=== PATIENT | female | born 1945 | race Caucasian/White ===

== ENCOUNTER 2019-03-25 02:48 | Inpatient (IN) | payer OTHER, MEDICARE ==
[~2019-03-25] VITALS: Ht 160 cm; Wt 104.3 kg
[~2019-03-25 02:48] MED LIST: ADV250/50 INH; BACTROBAN2% TP; BRETHINE5 MG PO; CIPRO HC10 ML OU; CLINDAMYCIN HC300 MG PO; FLUTICASON0.05 MG/Ac; HIBICLENS TP; INVOKANA100 MG PO; KLOR-CON 1010 MEQ PO; LAC PO; LASIX20 MG PO; LASIX40 MG PO; LEVAQUIN750 MG PO; MEDDP PO; MONTELUKAST SOD10 M1 PO; NASONEX0.05 MG/Ac; NOVOLOG FLEX100 U/M1 SC; OMEPRAZOLE40 M1 PO; PROVENTIL0.09 MG/A1 IH; SPIRIVA18 MC1 INH; ZESTRIL20 MG PO; [UNRECOGNIZED DRUG - OTHER] SQ
[2019-03-25 02:56] VITALS: Ht 160 cm; Wt 104.3 kg
--- NOTE | 2019-03-25 03:20 | NUR ---
PATIENT WAS BROUGHT IN BY EMS WITH COMPLAINT OS SOB X 1 WEEK. BREATHING DIFFICULTY GOT WORSE TODAY. PATIET REPORTS SHE HAS BEEN USING HER INHALER ALL DAY. SEEN WITH DYSPNEA AT REST, TALKING FULL SENTENCE BETWEEN CATCHING HER BREATH. PATIENT WAS GIVEN BREATHING IN THE FIELD. MD AT THE BEDSIDE. PATIENT REPORTS COPD/ASTHMA, AND US 2 LITER OXYGEN AT HOME. SATURATION 94% ON 2 LITER , SAME INCREASE TO 3LITER SATURATION UP TO 96%.
--- NOTE | 2019-03-25 03:36 | NUR ---
PATIENT MEDICATED WITH SOLUMEDROL IVP. RESPIRATORY AT THE BEDSIDE TO GIVE BREATHING TX.
[2019-03-25 04:10] LABS: BASOPHIL % 0.3 % (0-2); PLATELET COUNT 315 x10^3mcL (130-400)
[2019-03-25 04:12] LABS: RED CELL DISTRIBUTION WIDTH 15.1 % (11.5-14.5)
[2019-03-25 04:39] LABS: CALCIUM 9.2 mg/dL (8.5-10.1); CARBON DIOXIDE 33.7 mmol/L (21-32); CHLORIDE SERUM 94 mmol/L (98-107); CREATININE SERUM 1.6 mg/dL (0.6-1.0); GLUCOSE SERUM 290 mg/dL (74-106); POTASSIUM SERUM 3.4 mmol/L (3.5-5.1); SODIUM SERUM 136 mmol/L (136-145)
[2019-03-25 04:43] LABS: ALBUMIN 3.4 g/dL (3.4-5.0); ALKALINE PHOSPHATASE 95 U/L (46-116); ALT/SGPT 22 U/L (14-59); AST/SGOT 15 U/L (15-37); BILIRUBIN TOTAL 0.29 mg/dL (0.20-1.00); TOTAL PROTEIN, SERUM 8.2 g/dL (6.4-8.2)
--- NOTE | 2019-03-25 05:24 | NUR ---
PATIENT IS ADMITTED TO THE HOSPITAL. ANTIBIOTIC AND FLUID BOLUS STARTED.
--- NOTE | 2019-03-25 05:35 | NUR ---
PATIENT IS SLEEPING AT THIS TIME. REPORT WAS GIVEN TO MARY. PATIENT WILL BE TRANSPORTED TO ROOM 218A.
[2019-03-25 06:14] VITALS: BP 166/70
[2019-03-25 06:14] LABS: CHOLESTEROL/HDL RATIO 3.8; MAGNESIUM 1.4 mg/dL (1.8-2.4); PHOSPHOROUS 4.3 mg/dL (2.5-4.9)
[2019-03-25 06:23] LABS: FREE T4 1.24 ng/dL (0.76-1.46); FREE THYROXINE INDEX 3.2 ug/dL (1.4-4.5); T3 TOTAL 0.94 ng/mL; T4(THYROXINE) 8.9 ug/dL (4.7-13.3)
--- NOTE | 2019-03-25 06:42 | NUR ---
ADMITTED A 73 YEAR OLD PATIENT TO THE FLOOR,PT CAME TO THE FLOOR VIA [facility] AND WAS ACCOMPANIED BY THE HOSPITAL PERSONNEL AND THE NURSE,PT WAS RECIEVED TO THE BED WAS MADE COMFORTABLE IN BED TELE MONITOR WAS ELIZ ON THE PATIENT AND IN NSR NO ECTOPY OR CHEST PAIN AT THIS TIME.ON INITAIL ASSESSMENT PATIENT IS AAO REG RESP WITH CARCKLES RHOCHI AND AUDIBLE WHEEZING TO CARROLL LOWER BAESES PT WAS PUT ON 2L N/C SAT 94%,ABDO IS SOFT OBNESE WITH ACTIVE BOWEL SOUNDS,PT ALSO CAME TO THE FLOOR WITH IV INFUSING TO THE LT AC SITE PATENT AND INTACT,PT WAS ORIENTED TO THE CALL LIGHT BED CONTROL TELE MONITOR AND CALL LIGHT PATIENT VERBALOIZED UNDERSTANDING,BED IN THE LOW POSITION AND LOCKED AND WILL CONTINUE TO MONITOR.
--- NOTE | 2019-03-25 06:47 | NUR ---
PT RESTING AT THIS TIME AND WILL CONTINUE TO MONITOR.
--- NOTE | 2019-03-25 07:20 | NUR ---
RECEIVED PT FROM REAL ESTATE AGENT/BROKER RN. Shantanu/TONYA. TELE#6. DENIES CHEST PAIN/PRESSURE. PT TRYING TO GET OUT UP BED. PT STATES SHE IS SOB AND HAVING DIFFICULTY BREATHING. RESPIRATIONS LABORED ON 2L NC. INCREASED NC TO 23L. PT SITTING UP IN CHAIR LEANING FORWARD ON BEDSIDE TABLE. O2 SAT 93%. PT DENIES ANY PAIN AT THIS TIME. IV TO LAC PATENT AND INFUSING. NO REDNESS OR SWELLING NOTED. WILL CONTINUE TO MONITOR. CALL LIGHT IN REACH. BED IN LOWEST POSITION.
--- NOTE | 2019-03-25 07:30 | NUR ---
PT SITTING UP IN CHAIR AT BEDSIDE. IV TO LAC WAS REMOVED. CATHETER INTACT. NO REDNESS OR SWELLING NOTED.
--- NOTE | 2019-03-25 08:43 | NUR ---
RESPIRATORY THERAPIST AT BEDSIDE. PT WOULD LIKE TO HAVE BREATHING TREATMENTS SCHEDULED Q4HRS.
[2019-03-25 09:02] VITALS: BP 117/47
--- NOTE | 2019-03-25 09:55 | NUR ---
PT SITTING UP IN CHAIR AT BEDSIDE. NO ACUTE RESP DISTRESS NOTED ON 3L NC. PT DENIES ANY PAIN AT THIS TIME. GIVEN PO MEDS. TOLERATED WELL. PT ASKING IF SHE CAN HAVE BREATHING TREATMENTS SCHEDULED Q4HR. PER DR. GONZALEZ WILL PUT IN TERRENCE ORDER. WILL CONTINUE TO MONITOR. CALL LIGHT IN REACH. BED IN LOWEST POSITION.
--- NOTE | 2019-03-25 11:24 | NUR ---
PT IN BED RESTING. NO ACUTE RESP DISTRESS NOTED ON 3L NC. BLOOD SUGAR CHECKED WAS 494. RECHECKED BLOOD SUGAR WAS 479. PAGED DR. GONZALEZ PER INSULING SLIDING SCALE PROTOCOL.
--- NOTE | 2019-03-25 11:39 | NUR ---
PT SITTING UP IN BED. GIVEN 21 UNITS OF REGULAR INSULIN PER INSULIN SLIDING SCALE. SPOKE WITH DR. GONZALEZ MADE AWARE. WILL RECHECK BLOOD SUGAR.
--- NOTE | 2019-03-25 12:19 | NUR ---
PT SITTING UP IN BED. NO ACUTE RESP DISTRESS NOTED ON 3L NC. BLOOD SUGAR RECHECKED WAS 440. GIVEN PO MEDS. TOLERATED WELL. IV SALINE LOCKED TO [facility]. FLUSHED WELL. NO REDNESS OR SWELLING NOTED. WILL CONTINUE TO MONITOR. CALL LIGHT IN REACH. BED IN LOWEST POSITION.
[2019-03-25 14:00] VITALS: BP 120/48
--- NOTE | 2019-03-25 16:24 | NUR ---
PT SITTING UP AT BEDSIDE. RESPIRATIONS EQUAL AND UNLABORED ON 3L NC. NO ACUTE RESP DISTRESS NOTED. BLOOD SUGAR CHECKED WAS 455. RECHECKED BLOOD SUGAR WAS 414. GIVEN 18 UNITS OF REGULAR INSULIN PER SLIDING SCALE. WILL CONTINUE TO MONITOR. CALL LIGHT IN REACH. BED IN LOWEST POSITION.
[2019-03-25 17:28] LABS: microscopic required? NO
[2019-03-25 17:35] LABS: urine erythrocyte NEGATIVE (NEGATIVE)
[2019-03-25 17:51] VITALS: BP 140/53
--- NOTE | 2019-03-25 18:50 | NUR ---
PT SITTING UP IN BED. NO ACUTE RESP DISTRESS NOTED ON 3L NC. PT DENIES ANY SOB AT THIS TIME. IV SALINE LOCKED TO LFA. NO REDNESS OR SWELLING NOTED. PT DENIES ANY PAIN AT THIS TIME. WILL ENDORSE TO TELEGRAPH AND TELETYPE OPERATOR RN. CALL LIGHT IN REACH. BED IN LOWEST POSITION.
--- NOTE | 2019-03-25 19:05 | NUR ---
RECEIVED PT FROM PREVIOUS SHIFT NURSE. PT AOX4. TELE #6, HR 82, DENIES CP/PRESSURE. NO SOB/DIFFICULTY BREATHING, ON 3L NC. IV TO LFA, INTACT AND PATENT. BED IN LOWEST POSITION. CALL LIGHT WITHIN REACH. WILL CONTINUE TO MONITOR.
[2019-03-25 21:06] VITALS: BP 133/56
--- NOTE | 2019-03-25 21:54 | NUR ---
BLOOD SUGAR 518, 482 UPON RECHECK. GIVEN 21U HUMULIN R PER PROTOCOL. DR. GLEASON MADE AWARE.
--- NOTE | 2019-03-25 23:57 | NUR ---
PT NOT READY TO GO ON BIPAP YET. PT ADVISED TO CALL WHEN READY.
--- NOTE | 2019-03-26 | NUR ---
PER PT. SHE WOULD LIKE TO SLEEP WITHOUT BIPAP FOR TONIGHT.
--- NOTE | 2019-03-26 01:41 | NUR ---
PT RESTING IN BED. RR EVEN AND UNLABORED. NO ACUTE DISTRESS NOTED. CALL LIGHT WITHIN REACH. BED IN LOWEST POSITION. WILL CONTINUE TO MONITOR.
--- NOTE | 2019-03-26 04:28 | NUR ---
PATIENT AWAKE ON BEDSIDE COMMODE. DUONEB TX GIVEN, THEN PLACED PT ON BIPAP. BIPAP ALARMS SET AND VERIFIED. WHEELS LOCKED, PLUGGED INTO RED OUTLET. PATIENT INITIALLY SEEMS TO BE TOLERATING BIPAP WELL. CALL LIGHT WITHIN REACH. PT ADVISED TO CALL IF ASSISTANCE IS NEEDED.
--- NOTE | 2019-03-26 05:51 | NUR ---
PATIENT ASLEEP IN HIGH FOWLERS POSITION, BIPAP ON, PT IN NAD. B/S DIMINISHED BILATERALLY. PT WAS ADVISED TO CALL WHEN SHE IS READY TO COME OFF TO EAT BREAKFAST.
[2019-03-26 06:09] VITALS: BP 120/51
[2019-03-26 06:25] LABS: BASOPHIL % 0.1 % (0-2); PLATELET COUNT 297 x10^3mcL (130-400); RED CELL DISTRIBUTION WIDTH 14.4 % (11.5-14.5)
[2019-03-26 06:32] LABS: CALCIUM 9.3 mg/dL (8.5-10.1); CARBON DIOXIDE 31.4 mmol/L (21-32); CHLORIDE SERUM 93 mmol/L (98-107); CREATININE SERUM 1.6 mg/dL (0.6-1.0); GLUCOSE SERUM 393 mg/dL (74-106); MAGNESIUM 1.8 mg/dL (1.8-2.4); PHOSPHOROUS 4.3 mg/dL (2.5-4.9); POTASSIUM SERUM 4.1 mmol/L (3.5-5.1); SODIUM SERUM 132 mmol/L (136-145)
[2019-03-26 07:01] VITALS: BP 110/43
--- NOTE | 2019-03-26 07:30 | NUR ---
RECEIVED PT FROM TAFE REGISTRAR RN. Shantanu/TONYA. TELE#6. DENIES CHEST PAIN/PRESSURE. RESPIRATIONS EQUAL AND UNLABORED ON BIPAP WITH FIO2 OF 40. INSTRUCTED PT TO CALL WHEN WANTING TO GET OFF BIPAP. NO ACUTE RESP DISTRESS NOTED. IV SALINE LOCKED TO LFA. NO REDNESS OR SWELLING NOTED. WILL CONTINUE TO MONITOR. CALL LIGHT IN REACH. BED IN LOWEST POSITION.
--- NOTE | 2019-03-26 09:43 | NUR ---
TAKEN OFF OF BIPAP AND PLACED ON 2L NC. SPO2:97%. NO RESP DISTRESS NOTED. WILL CONT. TO MONITOR
[2019-03-26 11:58] VITALS: BP 119/52
--- NOTE | 2019-03-26 12:22 | NUR ---
PT SITTING UP IN BEDSIDE COMMODE. NO ACUTE RESP DISTRESS NOTED ON 3L NC. PT DENIES ANY SOB AT THIS TIME. GIVEN PO MEDS. TOLERATED WELL. BLOOD SUGAR CHECKED WAS 436. GIVEN 18 UNITS OF REGULAR INSULIN PER SLIDING SCALE. PT STATES SHE BELIEVES SHE MAY HAVE BEEN ON METFORMIN AND GLIPIZIDE. PT STATES SHE WILL HAVE SON BRING IN HOME MEDS. WILL CONTINUE TO MONITOR. CALL LIGHT IN REACH. BED IN LOWEST POSITION.
--- NOTE | 2019-03-26 16:24 | NUR ---
PT SITTING UP AT BEDSIDE. NO ACUTE RESP DISTRESS N0TED ON 3L NC. BLOOD SUGAR CHECKED WAS 442. GIVEN 18 UNITS OF REGULAR INSULIN PER SLIDING SCALE. WILL CONTINUE TO MONITOR. CALL LIGHT IN REACH. BED IN LOWEST POSITION.
[2019-03-26 17:26] VITALS: BP 130/57
--- NOTE | 2019-03-26 18:25 | NUR ---
PT MOVED FROM BEDSIDE COMMODE TO BED. PT C/O FEELING SOB. CALLED RESPIRATORY THERAPY WILL COME AND GIVE PT BREATHING TREATMENT.
--- NOTE | 2019-03-26 18:54 | NUR ---
PT SITTING UP AT BEDSIDE. NO ACUTE RESP DISTRESS NOTED ON 3L NC. TELE#6. IV SALINE LOCKED TO LFA. NO REDNESS OR SWELLING NOTED. WILL ENDORSE TO HEALTH AND SOCIAL CARE TEACHER RN. CALL LIGHT IN REACH. BED IN LOWEST POSITION.
--- NOTE | 2019-03-26 19:42 | NUR ---
RECEIVED PT FROM PREVIOUS SHIFT. PT A/OX4. DENIES PAIN. DENIES SOB ON 3LNC, STATES SOB UPON EXERTION. PT SITTING UP IN BED IN NO ACUTE DISTRESS. IV TO LFA PATENT, SALINE LOCKED. CALL LIGHT WITHIN REACH, BED IN LOW POSITION. WILL CONTINUE TO MONITOR.
[2019-03-26 20:56] VITALS: BP 121/61
--- NOTE | 2019-03-27 00:50 | NUR ---
PT SITTING UP AT BEDSIDE IN NO ACUTE DISTRESS. C/O ITCHING UNDERNEATH R BREAST. UPON ASSESSMENT, NOTED ERYTHEMA AND SWEATING. INTERDRY APPLIED. PT DENIES PAIN. CALL LIGHT WITHIN REACH, BED IN LOW POSITION. WILL CONTINUE TO MONITOR.
[2019-03-27 05:57] VITALS: BP 116/53
[2019-03-27 06:26] LABS: PLATELET COUNT 318 x10^3mcL (130-400); RED CELL DISTRIBUTION WIDTH 14.5 % (11.5-14.5)
[2019-03-27 06:50] LABS: BASOPHIL % 0 % (0-2)
[2019-03-27 07:04] LABS: CALCIUM 9.4 mg/dL (8.5-10.1); CARBON DIOXIDE 30.9 mmol/L (21-32); CHLORIDE SERUM 93 mmol/L (98-107); CREATININE SERUM 1.5 mg/dL (0.6-1.0); GLUCOSE SERUM 374 mg/dL (74-106); MAGNESIUM 1.9 mg/dL (1.8-2.4); PHOSPHOROUS 4.5 mg/dL (2.5-4.9); POTASSIUM SERUM 3.6 mmol/L (3.5-5.1); SODIUM SERUM 135 mmol/L (136-145)
--- NOTE | 2019-03-27 07:32 | NUR ---
RECEIVED PT IN BED. ASSESSED AND DOCUMENTED. DENIES PAIN THIS TIME. NO SOB NOTED. SAFTEY PRECAUTIONS ARE IN PLACE. WILL MONITOR.
[2019-03-27 09:38] VITALS: BP 142/59
[2019-03-27 13:45] VITALS: BP 138/62
--- NOTE | 2019-03-27 14:00 | NUR ---
PT RESTING IN BED COMFORTABLY, STABLE. NO SOB NOTED. DENIES ANY PAIN. GAVE REPORT TO ANNEALER HELPER NURSE.
--- NOTE | 2019-03-27 14:00 | NUR ---
PT SITTING UP IN THE CHAIR, STABLE. NO SOB NOTED.
--- NOTE | 2019-03-27 17:04 | NUR ---
PHYSICAL THERAPY DAILY NOTES CO-SIGN All documentation done by the Commodity Director for 03/27/19 has been reviewed. I agree with the documentation. Reviewed/Co-Signed by: Tram Mcmahon PT Documentation Done by:RICHELLE NICOLE PTA
[2019-03-27 17:53] VITALS: BP 120/59
--- NOTE | 2019-03-27 19:02 | NUR ---
PT RESTTING BED COMORTABLY, DENIES PAIN. NO SOB NOTED. GAVE REPORT TO PELLET PRESS OPERATOR NURSE.
--- NOTE | 2019-03-27 19:40 | NUR ---
RECEIVED SITTING AT BEDSIDE WITH NO SIGN OF ACUTE RESPIRATORY DIISTRESS. BREATHING EASY AND NONLABOR SATTING AT 98% ON O2 AT 3L VIA NC. BREATHING EASY AND NONLABOR. TELE#6 NSR ON MONITOR. ABDOMEN ROUND AND NONTENDER WITH ACTIVE BS. IV TO LFA HEPLOCK AND INTACT. WILL CONTINUE TO MONITOR. CALL LIGHT WITHIN REACH.
[2019-03-27 21:59] VITALS: BP 138/69
--- NOTE | 2019-03-27 23:56 | NUR ---
APPEARS SLEEPING THIS TIME WITH EYES CLOSED. BREATHING EASY AND NONLABOR. WILL CONTINUE TO MONITOR.
--- NOTE | 2019-03-28 05:23 | NUR ---
SLEPT AT LONG INTERVALS ON BIPAP. ALL NEEDS ATTENDED. DENIES PAIN AND DISCOMFORT.
[2019-03-28 06:21] VITALS: BP 147/62
[2019-03-28 06:46] LABS: CALCIUM 9.5 mg/dL (8.5-10.1); CARBON DIOXIDE 34.5 mmol/L (21-32); CHLORIDE SERUM 92 mmol/L (98-107); CREATININE SERUM 1.7 mg/dL (0.6-1.0); GLUCOSE SERUM 355 mg/dL (74-106); MAGNESIUM 2.1 mg/dL (1.8-2.4); PHOSPHOROUS 4.9 mg/dL (2.5-4.9); POTASSIUM SERUM 3.7 mmol/L (3.5-5.1); SODIUM SERUM 135 mmol/L (136-145)
[2019-03-28 07:14] LABS: BASOPHIL % 0.2 % (0-2); PLATELET COUNT 303 x10^3mcL (130-400); RED CELL DISTRIBUTION WIDTH 14.1 % (11.5-14.5)
--- NOTE | 2019-03-28 07:35 | NUR ---
RECEIVED PT FROM PREPARING BOX TENDER, SITTING AT THE EDGE OF BED. NO SOB NOTED. STABLE. SAFTEY PRECAUTIONS ARE IN PLACE. WILL MONITOR.
[2019-03-28 09:00] VITALS: BP 105/75; BP 136/55
[2019-03-28] MEDS ORDERED: LEVAQUIN750 MG PO (11:22)
[2019-03-28] MEDS ORDERED: HUMULIN N100 U/1 ML SC (11:26)
[2019-03-28] MEDS ORDERED: HUMULIN R100 U/1 M1 SC (11:30)
[2019-03-28] MEDS ORDERED: INVOKANA100 MG PO (11:31)
--- NOTE | 2019-03-28 12:15 | NUR ---
PT IS COUGHING AND ALMOST ABOUT TO CHOKE WITH PHLEM. PT HAS O2 2L N/C ON,SATTING 92% THIS TIME. SLIGHTLY RUBBED PT BACK AND THAT HELP HER GETTING THE PHLEM OUT, AFTER FEW MORE MIN COUGHING, PT FELT BETTER. INFORMED SALON/SPA MANAGER JACLYN ABOUT EVERYTHING AND ALSO INFORMED PT BLOOD SUGAR 400. NO NEW ORDER RECEIVED BUT JACLYN SAID WAIT FOR TO SEE THE PT AND HOLD ON DISCHARGE FOR NOW. CHARGE NURSE AWARE.
--- NOTE | 2019-03-28 13:55 | NUR ---
INFORMED SHEET METAL CONTRACTOR JACLYN ABOUT PT HAS ERYTHEMA TO HER BILATERAL BREASTFOLDS AND INTERDRY ON TO BILATERAL BREAST FOLDS. SHE SAID SHE WILL TAKE CARE OF IT. EDUCATED PT ABOUT PERSONAL HYGIENE.
[2019-03-28 14:31] VITALS: BP 146/63
--- NOTE | 2019-03-28 17:07 | NUR ---
CAME ASSESS THE PT AND SPOKE WITH PT. SHE RECCOMEND PT STAYING IN THE HOSPITAL TODAY BECAUSE OF HIGH BLOOD SUGAR AND MORE RT TX. SPOKE WITH AUTO BODY REPAIRER JACLYN. SHE SAID SHE WILL CANCEL DISCHARGE AND PT CAN STAY.
[2019-03-28 17:39] VITALS: BP 126/60
--- NOTE | 2019-03-28 19:00 | NUR ---
PT RESTING IN BED COMFORTABLY. STABLE. NO SOB NOTED. GAVE REPORT TO WRONG ADDRESS CLERK NURSE.
--- NOTE | 2019-03-28 19:41 | NUR ---
RECEIVED PATIENT SITTING AT BEDSIDE WITH NO SIGN OF ACUTE RESPIRATORY DISTRESS. BREATHINGE ASY AND NONLABOR SATTING AT 96% ON O2 AT 2L VIA NC. TELE#25 NSR ON MONITOR DENIES CHEST DISCOMFORT. IV TO RAC INTACT AND INFUSINGW ELL. WILL CONTINUE TO MONITOR. CALL LIGHT WITHIN REACH.
[2019-03-28 21:05] VITALS: BP 134/61
--- NOTE | 2019-03-29 00:29 | NUR ---
APPEARS SLEEPING THIS TIME, BREATHING EASY AND NONLABOR. WILL CONTINUE TO MONITOR.
--- NOTE | 2019-03-29 02:50 | NUR ---
WITH NEW ORDERS FROM DR PENDLETON, BANANA BAG INFUSING AT 100ML/HR.
--- NOTE | 2019-03-29 03:54 | NUR ---
PATIENT REQUESTED TO GO BIPAP. PATIENT IS AWAKE AND SITTING UP ON SIDE OF BED. CONFIRMED COMFORT WITH MASK.
--- NOTE | 2019-03-29 05:19 | NUR ---
CHECKED AT INTERVALS FOR NEEDS AND SAFETY. ALL NEEDS ATTENDED.
[2019-03-29 05:39] VITALS: BP 136/65
--- NOTE | 2019-03-29 06:32 | NUR ---
PHYSICAL THERAPY DAILY NOTES CO-SIGN All documentation done by the Carpenter'S Assistant for 03/29/19 has been reviewed. I agree with the documentation. Reviewed/Co-Signed by: Tram Mcmahon PT Documentation Done by:RICHELLE NICOLE PTA FOR 03/28/19
[2019-03-29 08:40] LABS: CALCIUM 9.6 mg/dL (8.5-10.1); CHLORIDE SERUM 99 mmol/L (98-107); CREATININE SERUM 1.4 mg/dL (0.6-1.0); GLUCOSE SERUM 135 mg/dL (74-106); POTASSIUM SERUM 3.6 mmol/L (3.5-5.1); SODIUM SERUM 140 mmol/L (136-145)
--- NOTE | 2019-03-29 08:47 | NUR ---
REPORT RECEIVED. PATIENT ASLEEP ON INITIAL ROUNDS AT 0750 WITH BIPAP IN USE. CALL MCGREGOR WITHIN REACH.BED LOW AND LOCKED.
[2019-03-29 08:58] LABS: CARBON DIOXIDE 40.7 mmol/L (21-32)
[2019-03-29 09:01] LABS: BASOPHIL % 0.2 % (0-2); PLATELET COUNT 317 x10^3mcL (130-400); RED CELL DISTRIBUTION WIDTH 14.3 % (11.5-14.5)
[2019-03-29 09:55] VITALS: BP 123/70
--- NOTE | 2019-03-29 10:23 | NUR ---
TASH ANAYA HERE AND RELAYED CRITICAL VALUE ON CO2 40.7. NO NEW ORDERS SO FAR.
--- NOTE | 2019-03-29 11:31 | NUR ---
P.T. NOTES AFTER MULTIPLE ATTEMPTS PATIENT REFUSED TO BE SEEN BY P.T., STATES NOT FEELING WELL AND SOB, PATIENT STATES NURSE IS AWARE AND WILL CALL FOR RT.
--- NOTE | 2019-03-29 12:32 | NUR ---
SEEN AND EXAMINED BY DR. JORDAN. TO COLLECT SPUTUM FOR GRAM STAIN AND CULTURE.
[2019-03-29 13:45] VITALS: BP 140/61
--- NOTE | 2019-03-29 14:13 | NUR ---
WATCHING TV AT THIS TIME. ENCOURAGED TO USE INCENTIVE SPIROMETRY. CUP PROVIDED FOR SPUTUM COLLECTION.
--- NOTE | 2019-03-29 19:06 | NUR ---
REPORT GIVEN TO TIMMY LOMELI. PATIENT IN BED WATCHING TV. A/OX3. DENIES ANY SOB. BED LOW AND LOCKED. CALL MCGREGOR WITHIN REACH.
--- NOTE | 2019-03-29 19:30 | NUR ---
RECEIVED PT FROM DAY SHIFT RN. PT AAOX4 DENIES HEADACHE OR DIZZINESS. TELE 6 NSR HR 76, PT DENIES CHEST PAIN. BREATHING EVEN AND UNLABORED WITH WHEEZING UPON AUSCULTATION, 3L/MIN NC. RT PROTOCOL. IV LFA PATENT, SL. BLE EDEMA NOTED. NO SIGNS OF ACUTE DISTRESS NOTED. CALL BUTTON WITHIN REACH. WILL CONTINUE TO MONITOR.
[2019-03-29 20:52] VITALS: BP 126/67
--- NOTE | 2019-03-29 21:00 | NUR ---
DR FELIX MADE AWARE OF SPUTUM CULTURE RESULT BEING POOR QUALITY AND WILL NEED A NEW ORDER FOR SPUTUM CULTURE. NO NEW ORDER AT THIS TIME.
--- NOTE | 2019-03-29 23:59 | NUR ---
PT AWAKE, DENEIS ANY PAIN. NC 3L/MIN NO SOB NOTED. NO SIGNS OF ACUTE DISTRESS NOTED. CALL BUTTON WITHIN REACH. WILL CONTINUE TO MONITOR.
--- NOTE | 2019-03-30 03:15 | NUR ---
PT RESTING, BREATHING EVEN AND UNLABORED WITH NO SIGNS OF DISTRESS NOTED. NC IN PLACE NO SOB NOTED. CALL BUTTON WITHIN REACH. WILL CONTINUE TO MONITOR.
[2019-03-30 05:51] VITALS: BP 130/51
--- NOTE | 2019-03-30 06:00 | NUR ---
PT REQUESTING BREATHING TREATMENT, RT PAGED.
--- NOTE | 2019-03-30 06:24 | NUR ---
PT SLEPT MOST OF THE NIGHT WITH NO SIGNS OF DISTRESS. BREATHING EVEN AND UNLABORED, NC 3L/MIN NO SOB NOTED. RT PROTOCOL. IV PATENT, SL. MEDICATED PER EMAR. PT AMBULATORY TO BSC. NO SIGNS OF ACUTE DISTRESS NOTED. CALL BUTTON WITHIN REACH. WILL CONTINUE TO MONITOR AND ENDORSE CARE TO DAY SHIFT RN.
--- NOTE | 2019-03-30 06:26 | NUR ---
PHYSICAL THERAPY DAILY NOTES CO-SIGN All documentation done by the Ethnic Studies Professor for 03/30/19 has been reviewed. I agree with the documentation. Reviewed/Co-Signed by: Tram Mcmahon PT Documentation Done by:RICHELLE NICOLE PTA FOR 03/29/19
[2019-03-30 06:32] LABS: PLATELET COUNT 300 x10^3mcL (130-400); RED CELL DISTRIBUTION WIDTH 13.6 % (11.5-14.5)
[2019-03-30 07:02] LABS: CALCIUM 9.5 mg/dL (8.5-10.1); CARBON DIOXIDE 35.8 mmol/L (21-32); CHLORIDE SERUM 96 mmol/L (98-107); CREATININE SERUM 1.2 mg/dL (0.6-1.0); GLUCOSE SERUM 164 mg/dL (74-106); POTASSIUM SERUM 3.2 mmol/L (3.5-5.1); SODIUM SERUM 139 mmol/L (136-145)
--- NOTE | 2019-03-30 07:23 | NUR ---
PT RESTING, BREATHING EVEN AND UNLABORED NO SIGNS OF ACUTE DISTRESS NOTED. ENDORSED CARE TO DAY SHIFT RN, ALL QUESTIONS ADDRESSED.
--- NOTE | 2019-03-30 07:30 | NUR ---
RECEIVED PT FROM BAG MACHINE OPERATOR RN. Shantanu/TONYA. TELE#6. DENIES CHEST PAIN/PRESSURE. RESPIRATIONS EQUAL AND LABORED ON 3L NC. PT STATES SHE DOES FEEL SOB AT TIMES. PT C/O SORE THROAT. IV TO RFA SALINE LOCKED. NO REDNESS OR SWELLING NOTED. WILL CONTINUE TO MONITOR. CALL LIGHT IN REACH. BED IN LOWEST POSITION.
--- NOTE | 2019-03-30 08:35 | NUR ---
PT WORKING WITH PHYSICAL THERAPIST RICHELLE. TOLERATING WELL.
[2019-03-30 09:04] VITALS: BP 143/45
[2019-03-30 10:39] LABS: BAND NEUTROPHIL 3 % (0-10); BASOPHIL 0 % (0-2); MONOCYTE 7 % (0-7); PLATELET MORPHOLOGY PLATELETS NORMAL; SEGMENTED NEUTROPHILS 59 % (37-75); rbc morphology (normal/abnorm) NORMAL (NORMAL)
--- NOTE | 2019-03-30 11:49 | NUR ---
SPOKE YANN ACCOUNTS PAYABLE TECHNICIAN PER YANN PT HAS BEEN ACCEPTED TO [facility]. INFORMED PT. PT OKAY WITH GOING TO [facility] TODAY. SPOKE WITH JACLYN BIANCHI PER JACLYN SHE WILL UPDATE DISCHARGE FOR TODAY. PT WILL BE PICKED UP AFTER 1500.
[2019-03-30] MEDS ORDERED: LEV500PM IV (12:21)
[2019-03-30] MEDS ORDERED: FLA500I IV (12:21)
[2019-03-30 12:45] VITALS: BP 132/62
--- NOTE | 2019-03-30 12:49 | NUR ---
PT SITTING UP IN BED. PT C/O IV TO RFA IS PAINFUL. NO BLOOD RETURNED. REMOVED IV TO RFA CATHETER INTACT. NO REDNESS OR SWELLING NOTED. IV TO LW STARTED. NO REDNESS OR SWELLING NOTED.
[2019-03-30 12:56] VITALS: BP 132/62
--- NOTE | 2019-03-30 14:30 | NUR ---
REPORT GIVEN TO TONY AT [facility]. SPOKE WITH PAYROLL AND BENEFITS MANAGER AT [facility] PER [facility] BED WILL NOT BE AVAILABLE UNTIL AFTER 1930. PASTRYCOOK'S ASSISTANT YANN INFORMED. YANN CALLED [facility] AND RESCEDULED [facility] FRUIT SHIPPER FOR 1999.
--- NOTE | 2019-03-30 14:50 | NUR ---
PT INFORMED TRANSFER WILL TAKE PLACE AT 1999. PT VERBALIZED UNDERSTANDING.
[2019-03-30 16:40] VITALS: BP 114/65
--- NOTE | 2019-03-30 17:21 | NUR ---
PT SITTING UP AT BEDSIDE. NO ACUTE RESP DISTRESS NOTED ON 2L NC. PT DENIES ANY SOB AT THIS TIME. BLOOD SUGAR CHECKED WAS 281. GIVEN 9 UNITS OF REGULAR INSULIN PER SLIDING SCALE. IV TO LW PATENT AND INFUSING. FLUSHED WELL. NO REDNESS OR SWELLING NOTED. WILL CONTINUE TO MONITOR. CLAL LIGHT IN REACH. BED IN LOWEST POSITION.
--- NOTE | 2019-03-30 18:51 | NUR ---
PT SITTING UP AT BEDSIDE COMMODE. NO ACUTE RESP DISTRESS NOTED ON RA. TELE#6. PT DENIES ANY SOB AT THIS TIME. PT DENIES ANY PAIN AT THIS TIME. WILL ENDORSE TO COLLECTION DEVELOPMENT LIBRARIAN RN. CALL LIGHT IN REACH.
--- NOTE | 2019-03-30 19:05 | NUR ---
PT RECEIVED A/O X4, ABLE TO MAKE NEEDS KNOWN, DENIES ANY H/A OR DIZZINESS. TELE #6, DENIES CP/PRESSURE. PULSES PALPABLE, TRACE EDEMA TO BLE. LUNG SOUNDS DIM TO CARROLL BASES, BREATHING IS EVEN AND UNLABORED ON 2L NC, DENIES SOB, 02 SAT-97%, NO RESP DISTRESS NOTED. ABD SOFT AND ROUND, DENIES N/V. VOIDS FREELY, BRP. GENERALIZED WEAKNESS, AMBULATORY WITH STEADY GAIT. ERYTHEMA NOTED TO BREAST FOLDS WITH INTERDRY IN PLACE. PT DENIES ANY PAIN PAIN AT THIS TIME. IV TO LW, PATENT AND INTACT, SITE FREE FROM REDNESS OR SWELLING. PT AWAITING FOR [facility] TRANSPORT FOR TRANSFER TO [facility]. NO ACUTE DISTRESS NOTED. BED IN LOWEST SETTING, SIDE RAILS UP X2, CALL LIGHT WITHIN REACH. WILL CONT TO MONITOR.
--- NOTE | 2019-03-30 20:25 | NUR ---
[facility] TRANSPORT ARRIVED FOR TRANSFER. PT DRESSED IN TRANSFER GOWN. ALL BELONGINGS COLLECTED AND GIVEN TO [facility] TEAM. REPORT GIVEN TO [facility] STAFF, ALL QUESTIONS AND CONCERNS ADDRESSED, TELE #6 REMOVED AND RETURNED TO RELIABILITY SPECIALIST. IV TO LW INTACT. PT IN NO ACTUE DISTRESS. WILL CONT TO MONITOR.
--- NOTE | 2019-03-30 20:40 | NUR ---
PT LEFT UNIT IN NO ACUTE DISTRESS VIA GURNOY ACCOMPANIED BY [facility] TEAM. ALL BELONGINGS AND PAPERWORK LEFT WITH PT.
--- NOTE | 2019-03-31 06:50 | NUR ---
PHYSICAL THERAPY DAILY NOTES CO-SIGN All documentation done by the [facility] for 03/31/19 has been reviewed. I agree with the documentation. Reviewed/Co-Signed by: Tram Mcmahon PT Documentation Done by:RICHELLE NICOLE PTA FOR 03/30/19
== END 2019-03-30 20:40 | DRG 189 ==
LOC: ED 02:48 → DU 04:59
PROVIDERS: Emergency Medicine; Family Medicine; ADMIT Internal Medicine
DX: J96.20 Acute and chronic respiratory failure, unspecified whether with hypoxia or hypercapnia (principal); N17.0 Acute kidney failure with tubular necrosis; J18.9 Pneumonia, unspecified organism; J44.1 Chronic obstructive pulmonary disease with (acute) exacerbation; E44.1 Mild protein-calorie malnutrition; Z68.41 Body mass index [BMI] 40.0-44.9, adult; J40 Bronchitis, not specified as acute or chronic; E11.65 Type 2 diabetes mellitus with hyperglycemia; G47.33 Obstructive sleep apnea (adult) (pediatric); I10 Essential (primary) hypertension; E87.6 Hypokalemia; D64.9 Anemia, unspecified; E66.01 Morbid (severe) obesity due to excess calories; Z91.19 Patient's noncompliance with other medical treatment and regimen; Z87.891 Personal history of nicotine dependence
CPT/HCPCS: 82962; 83880; 84439; 87107; 97110-GP; 97116-GP; 97530-GP; J1644; J1815; J1956; J2920; J2930; J3490; J7030; J7050; J7512; J7613; J7620; J7644; Q0092

== ENCOUNTER 2019-06-02 18:55 | Inpatient (IN) | payer OTHER, MEDICARE ==
[~2019-06-02] VITALS: Ht 160 cm; Wt 112.6 kg
[~2019-06-02 18:55] MED LIST changes: +FLA500I IV; +HUMULIN N100 U/1 ML SC; +HUMULIN R100 U/1 M1 SC; +LEV500PM IV
--- NOTE | 2019-06-02 19:33 | NUR ---
PATIENT WAS BROUGHT IN BY EMS WITH REPORT OF CONSTIPATION AND RECTAL PAIN. PATIENT IS DROWSY, RESPONDS VERBALLY WITH GARBBLED SPEECH ? NO DENTURES IN. PATIENT REPORTS BM CUOPLE DAYS AGO. HAS A GAUZE DRESSING ON THE LEFT SUBCLAVIAN AREA, PATIENT REPORTS SHE HAD A PACER PLACE 2 DAYS AGO. MULTIPLE MEDICAL HISTORY. COPD, CHRONIC RESPITATORY FAILURE, ASTHMA, CARDIAC, HTN; CANNOT RECALL THE NEDICATION SHE TAKES.
--- NOTE | 2019-06-02 20:55 | NUR ---
PATIENT WENT TO XRAY FOR KUB.
--- NOTE | 2019-06-02 21:00 | NUR ---
PATIENT RETURN FROM XRAY, TECH REPORTS PATIENT HAS MIDLINE ABDOMINAL AMERICA. PATIENT REPORTS COLAN SURGERY. PATIENT MEDICATED WITH MAGNRSOUN CITRATE FOR CONSTIPATION.
--- NOTE | 2019-06-02 23:22 | NUR ---
PATIENT DID NOT HAVE BM AFTER THE FLEET ENEMA AND THE MAG CITRITATE. LACTALOSE GIVEN AT THIS TIME.
--- NOTE | 2019-06-03 00:17 | NUR ---
PATIENT WENT FOR CT SCAN AND RETURN TO THE ROOM. LPN INSTRUCTOR AT [facility] BEDSIDE DRAWING BLOOD.
[2019-06-03 00:29] LABS: BASOPHIL % 0.4 % (0-2); PLATELET COUNT 304 x10^3mcL (130-400)
[2019-06-03 00:30] LABS: RED CELL DISTRIBUTION WIDTH 14.6 % (11.5-14.5)
[2019-06-03 00:43] LABS: CALCIUM 9.2 mg/dL (8.5-10.1); CARBON DIOXIDE 32.5 mmol/L (21-32); CHLORIDE SERUM 98 mmol/L (98-107); CREATININE SERUM 1.1 mg/dL (0.6-1.0); GLUCOSE SERUM 221 mg/dL (74-106); POTASSIUM SERUM 3.3 mmol/L (3.5-5.1); SODIUM SERUM 138 mmol/L (136-145)
[2019-06-03 00:49] LABS: ALBUMIN 2.6 g/dL (3.4-5.0); ALKALINE PHOSPHATASE 107 U/L (46-116); ALT/SGPT 17 U/L (14-59); AST/SGOT 15 U/L (15-37); BILIRUBIN TOTAL 0.3 mg/dL (0.20-1.00); TOTAL PROTEIN, SERUM 6.5 g/dL (6.4-8.2)
--- NOTE | 2019-06-03 01:27 | NUR ---
PT SLEEPING, WAKES EASILY TO VERBAL STIMULI. PT NOTED WITH O2 SATURATION DROPPING TO 80'S, PLACED ON 2L 02 VIA NASAL CANNULA.
[2019-06-03 01:44] LABS: PHOSPHOROUS 3.8 mg/dL (2.5-4.9)
[2019-06-03 01:45] LABS: CHOLESTEROL/HDL RATIO 4.9
--- NOTE | 2019-06-03 01:46 | NUR ---
REPORT WAS GIVEN TO GERMAN. PATIENT TRANSPORTED TO ROOM 243B.
[2019-06-03 03:31] VITALS: BP 129/67
[2019-06-03 03:32] VITALS: BP 139/67
--- NOTE | 2019-06-03 04:08 | NUR ---
RECEIVED PT FROM ED. KEPT COMFORTABLE IN BED. A/O 3, FORGETFUL AT TIMES. ADMITTED WITH COMPLAINTS OF CONSTIPATION AND RECTAL PAIN. DENIES PAIN AT THIS TIME. RESP. EVEN AND UNLABORED. LUNG SOUNDS CLEAR , DIM. AT THE BASES. 02 AT 2L/MIN VIA NC, SAT. 98%. MED-SURG PT. DRESSING TO LT UPPER CHEST, PT STATES HAD PACE MAKER PLACEMENT 2DAYS AGO, DENIES CP OR ANY PRESSURE. AFEBRILE AND VITAL SIGNS STABLE. ABD. OBESE, FIRM TO TOUCH, WITH HYPOACTIVE BOWEL SOUND. S/P ABD. SURG PER PT, MID LINE INCISION WITH AMERICA,CRAIG, DRY AND INTACT. NO DRAINAGE NOTED. SKIN WARM AND DRY TO TOUCH. 3+ EDEMA TO BLE ,ABLE TO MOVE EXTS. PT AMBULATES WITH A WALKER AT HOME. HL TO RFA, INTACT AND PATENT. ORIENTED TO ROOM AND SURROUNDINGS. BED IN LOW POSITION. CALL LIGHT WITHIN REACH. WILL CONTINUE TO MONITOR.
--- NOTE | 2019-06-03 06:21 | NUR ---
STARTED ON IVF, NS AT 100ML/HR, INTACT AND INFUSING WELL, SITE CLEAR. NPO EXCEPT MEDS MAINTAINED. NO COMPLAINTS NOTED AT THIS TIME.SON HERE AT THE BEDSIDE, VISITING. WILL CONTINUE TO MONITOR.
[2019-06-03 06:43] LABS: BASOPHIL % 0.4 % (0-2); PLATELET COUNT 305 x10^3mcL (130-400)
[2019-06-03 07:05] VITALS: BP 139/64
[2019-06-03 07:30] LABS: CALCIUM 8.9 mg/dL (8.5-10.1); CARBON DIOXIDE 33.9 mmol/L (21-32); CHLORIDE SERUM 99 mmol/L (98-107); CREATININE SERUM 1.2 mg/dL (0.6-1.0); GLUCOSE SERUM 193 mg/dL (74-106); MAGNESIUM 2.3 mg/dL (1.8-2.4); PHOSPHOROUS 4.3 mg/dL (2.5-4.9); POTASSIUM SERUM 3.5 mmol/L (3.5-5.1); SODIUM SERUM 140 mmol/L (136-145)
--- NOTE | 2019-06-03 07:30 | NUR ---
RECD EYES ARE CLOSED BUT EASILY AROUSABLE TO VERBAL STIMULATION. OX4. SPEECH IS CLEAR; ABLE TO FOLLOW VERBAL COMMANDS AND MAKE NEEDS KNOWN. NO SOB; O2 AT 2L/NC IN USE. MED/SURG PT; DENIES CP OR OTHER DISCOMFORT; ABD IS ROUND, DISTENDED AND SOFT; BS+ ACTIVE; PT HAD PREVIOUS ABD SURGERY AND AMERICA ARE STILL IN PLACE MIDLINE; INCISION IS LONG; PHOTO IN THE CHART; GOOD APRXIMATION OF AMERICA, A LITTLE PINK SURROUNDING THE AMERICA/ INCISION, NO ACTIVE DRAINAGE BUT NOTE LIGHT YELLOWISH/BROWN CRUSTS ALONG THE INCISION. CRAIG. DENIES PAIN. BIG ECCHYMOSIS ON THE RT SIDE OF THE ABDOMEN; DSG NOTED ON THE LT UPPER CHEST; PER PT, SHE WAS POST PLACEMENT OF PACEMAKER 6 DAYS AGO. PT IS OBESE; EDEMA 3+ NOTED ON THE BLE; IVF NSS AT 100 ML/HR INFUSING. RFA SITE PATENT AND WITHOUT INFILTRATION. SAFETY AND FALL PRECAUTION REINFORCED. WILL CONTINUE TO MONITOR STATUS.
[2019-06-03 07:56] LABS: RED CELL DISTRIBUTION WIDTH 14.8 % (11.5-14.5)
--- NOTE | 2019-06-03 09:20 | NUR ---
PT'S SON IN THE ROOM. QUESTIONS AND CONCERNS ADDRESSED DURING ROUNDS BY MD. PT AWARE ABOUT THE NEED TO COLLECT URINE SPECIMEN.
--- NOTE | 2019-06-03 14:28 | NUR ---
PT HAS HAD 3 BMS AND PER LABOR UTILIZATION SUPERINTENDENT, FIRST IS WITH 2 FORMED, LITTLE STOOLS; SECOND IS MEDIUM SIZE; THIRD IS MED TO BIG. UNABLE TO COLLECT UA SINCE IT GETS MIXED WITH STOOLS PER SENIOR ENTERPRISE ARCHITECT.
[2019-06-03 16:00] VITALS: BP 114/61
--- NOTE | 2019-06-03 19:08 | NUR ---
PT HAD MORE BM THIS AFTERNOON; BIG AND LOOSE; SON IS HERE AROUND 1700 AND MADE AWARE; UPDATED WITH PT'S CONDITION; STILL WAITING FOR THE SURGEON CONSULT TO COME; NOT IN ANY DISTRESS; WILL CONTINUE TO MONITOR STATUS.
--- NOTE | 2019-06-03 19:30 | NUR ---
RECEIVED PT FROM PREVIOUS SHIFT NURSE. PT AOX4. SPEECH GARBLED AT TIMES. ABLE TO MAKE NEEDS KNOWN. MED SURG PT. DSG NOTED ON L. PACEMAKER SITE. DENIES CP/PRESSURE. DENIES SOB/DIFFICULTY BREATHING, ON 2L NC. MIDLINE ABD INCISION WITH [place], CRAIG. IV TO RFA, INTACT AND PATENT. BED IN LOWEST POSITION. CALL LIGHT WITHIN REACH. WILL CONTINUE TO MONITOR.
[2019-06-03 19:40] VITALS: BP 95/38
[2019-06-03 22:01] LABS: UA SPECIFIC GRAVITY 1.015 (1.005-1.035); microscopic required? YES; urine erythrocyte 1+ (NEGATIVE)
--- NOTE | 2019-06-04 01:16 | NUR ---
PT RESTING IN BED. RR EVEN AND UNLABORED. IN NO ACUTE DISTRESS. CALL LIGHT WITHIN REACH. BED IN LOWEST POSITION. WILL CONTINUE TO MONITOR.
[2019-06-04 04:38] VITALS: BP 108/52
[2019-06-04 06:44] LABS: BASOPHIL % 0.3 % (0-2); PLATELET COUNT 265 x10^3mcL (130-400)
[2019-06-04 06:48] LABS: CALCIUM 8.7 mg/dL (8.5-10.1); CARBON DIOXIDE 35.4 mmol/L (21-32); CHLORIDE SERUM 102 mmol/L (98-107); GLUCOSE SERUM 207 mg/dL (74-106); MAGNESIUM 2.5 mg/dL (1.8-2.4); PHOSPHOROUS 3.1 mg/dL (2.5-4.9); POTASSIUM SERUM 4.1 mmol/L (3.5-5.1); SODIUM SERUM 142 mmol/L (136-145)
--- NOTE | 2019-06-04 07:05 | NUR ---
RECEIVED PT FROM CHRISTOPHE RN. PT FOUND RESTING IN BED WITH BOTH EYES CLOSED. EASILY AROUSABLE TO VERBAL STIMULI, FACE SYMMETRICAL, SPEECH CLEAR. NO RAMIREZ. NO DIZZINESS. FOUND ON 2LNC, LUNG SOUNDS DIMINISHED BLL, CTA. DENIES SOB AT THIS TIME. CHEST EXPANSION SYMMETRICAL. RR EVEN/UNLABORED. DENIES CHEST PAIN. PT HAS LEFT SIDED PACEMAKER, PT REPORTS PACEMAKER PLACED 05/30/19 DUE TO COMPLICATIONS DURING SURGERY. CALM/COOPERATIVE. ABDOMEN SOFT, ROUND, NON-DISTENDED. BOWEL SOUNDS ACTIVE X4. PT HAS LARGE SURGICAL WOUND WITH [place], SKIN SURROUNDING INCISION APPEARS WNL, NO REDNESS, NO DRAINAGE NOTED, GOLD CUTTER. AMERICA IN TACT. LARGE ECCHYMOTIC SPOT NOTED TO RIGHT SIDE ABDOMEN. BLANCHABLE ERYTHEMA NOTED TO PERIANAL. HYDRAGUARD APPLIED. REPOSITIONS INDEPENDENTLY. FALL PRECAUTIONS IN PLACE. IV WNL TO RFA, NO REDNESS, NO SWELLING, NO INFILTRATION. PATENT. SALINE LOCKED. INSTRUCTED TO USE CALL LIGHT TO CALL FOR ASSISTANCE PRN. VERBALIZED UNDERSTANDING. WILL CONTINUE TO MONITOR.
[2019-06-04 07:30] LABS: RED CELL DISTRIBUTION WIDTH 14.9 % (11.5-14.5)
[2019-06-04 09:13] VITALS: BP 118/93
--- NOTE | 2019-06-04 10:33 | NUR ---
PT RESTING IN BED WITH BOTH EYES CLOSED. NO S/S OF ACUTE DISTRESS. NO SOB ON 2LNC. RR EVEN/UNLABORED AT THIS TIME. NO S/S OF PAIN. CALM AT THIS TIME. IV SALINE LOCKED, SITE WNL. SIDE RAILS UP X2. BED IN LOW POSITION. CALL LIGHT WITHIN REACH. WILL CONTINUE TO MONITOR.
--- NOTE | 2019-06-04 15:29 | NUR ---
PT SITTING IN CHAIR AT SIDE OF BED ON 2LNC. DENIES SOB AT THIS TIME. AA/OX4. REQUESTED SNACK, GIVEN JELLO. NO N/V. NO CHEST PAIN. CALM/COOPERATIVE. IV WNL, SALINE LOCKED. BED IN LOW POSITION. CALL LIGHT WITHIN REACH. WILL CONTINUE TO MONITOR.
[2019-06-04 16:42] VITALS: BP 106/62
--- NOTE | 2019-06-04 18:14 | NUR ---
PT SITTING IN CHAIR AT SIDE OF BED. AA/OX4. NO COMPLAINT OF PAIN. NO SOB ON 2LNC. NO CHEST PAIN. CALM/COOPERATIVE. ABDOMINAL INCISION HAS SUTURES IN TACT. NO DRAINAGE, GENERAL MANAGER ROAD PRODUCTION. NO ODOR. IV WNL TO RFA, NO REDNESS, NO SWELLING, NO INFILTRATION. PATENT. SALINE LOCKED. TOLERATING CCHO DIET WELL. BED IN LOW POSITION. CALL LIGHT WITHIN REACH. WILL ENDORSE TO ONCOMING SHIFT.
--- NOTE | 2019-06-04 19:30 | NUR ---
PT IS A/O X4. ON MED SURG. DENIES ANY CHEST PAIN OR PRESSURE. PACEMAKER ON L CHEST. PULSES ARE PRESENT. EDEMA NOTED ON BLE. LUNGS CLEAR IN ALL FEILDS. ON 2L NC. DENIES ANY SOB. EQUAL CHEST RISE AND FALL. PT DENIES ANY SOB. BOWEL SOUNDS PRESENT. 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 NO DRAINAGE OR IRRITATION NOTED. DENIES ANY PAIN. SALINE LOCKED ON RFA INTACT AND PATENT. PT SITTING UP IN THE CHAIR. PT TOLERATING IT WELL. CALL LIGHT WITHIN REACH. WILL CONTINUE TO MONTIOR.
[2019-06-04 20:50] VITALS: BP 117/57
--- NOTE | 2019-06-05 01:26 | NUR ---
PT IS RESTING IN BED WITH BOTH EYES CLOSED. BREATHING EVEN AND UNALBORED. NO SIGN OF DISTRESS NOTED. BED IS AT LOWEST SETTING. CALL LIGHT WITHIN REACH. WILL CONTINUE TO MONTIOR.
[2019-06-05 04:36] VITALS: BP 117/42
--- NOTE | 2019-06-05 06:32 | NUR ---
PT IS RESTING IN BED WITH BOTH EYES CLOSED. NO SIGN OF DISTRESS NOTED. NO ACUTE EVENT OCCURED AT NIGHT. BED IS AT LOWEST SETTING. CALL LIGHT WITHIN REACH. BED IS AT LOWEST SETTING. CALL LIGHT WITHIN REACH. WILL ENDORSE TO AM NURSE.
[2019-06-05 07:41] LABS: BASOPHIL % 0.2 % (0-2); PLATELET COUNT 249 x10^3mcL (130-400)
[2019-06-05 07:42] LABS: RED CELL DISTRIBUTION WIDTH 14.9 % (11.5-14.5)
--- NOTE | 2019-06-05 08:23 | NUR ---
AAO TIMES 4. NO TELE, MED SURG. LUNGS DIMINISHED BILATERALLY, BUT BREATH SOUNDS CAN BE SLIGHTLY HEARD. O2 SAT ON 2L NC 97%. BS'S ACTIVE TIMES 4. 2+ EDEMA BLE. IV SITE RFA CDI. COOPERATIVE AND PLEASANT. NO C/O PAIN. BSC ASSIST.
[2019-06-05 08:31] LABS: CALCIUM 8.9 mg/dL (8.5-10.1); CARBON DIOXIDE 29.8 mmol/L (21-32); CHLORIDE SERUM 98 mmol/L (98-107); CREATININE SERUM 1.2 mg/dL (0.6-1.0); GLUCOSE SERUM 222 mg/dL (74-106); MAGNESIUM 2.5 mg/dL (1.8-2.4); PHOSPHOROUS 3.1 mg/dL (2.5-4.9); SODIUM SERUM 137 mmol/L (136-145)
[2019-06-05 08:44] VITALS: BP 112/43
--- NOTE | 2019-06-05 11:41 | NUR ---
DR FONTANA CAME AND SAW PATIENT, HER ABDOMINAL WOUND WITH [place] AND ALSO HER LEFT UPPER CHEST WOUND FROM RECENT PACEMAKER INSERTION. HE SAID TO KEEP THE PACEMAKER SITE CANCELLATION CLERK AND LEAVE THE AMERICA TO HER ABDOMEN, THAT HER GENERAL SURGEON APPT TO SEE HER IN 2 WEEKS IS OK TO WAIT TO HAVE AMERICA REMOVED.
--- NOTE | 2019-06-05 13:25 | NUR ---
RECEIVED REPORT FROM VANCE WARNER. PATIENT SITTING UP ON CHAIR, A/OX4, ABLE TO MAKE NEEDS KNOWN AND FOLLOW COMMANDS. 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 LT UPPER CHEST PREVIOUS CL SITE WNL, NO REDNESS/SWELLING, CRAIG. LUNGS CTA, NO RESP DISTRESS NOTED ON 2L NC. PERIPHERAL PULSES PALPABLE WITH EDEMA NOTED TO BLE'S. 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 BRUISING NOTED TO RT SIDE ABDOMEN. LAST BM STATED 2 DAYS AGO AND DENIES ANY GI DISCOMFORT/N/V. BSC IN PLACE. DENIES PAIN AT THIS TIME. IV SITE TO RFA NO REDNESS/SWELLING, PATENT. CALL LIGHT WITHIN REACH AND DEMONSTRATES UNDERSTANDING ON HOW TO USE. WILL CONT TO MONITOR.
--- NOTE | 2019-06-05 17:03 | NUR ---
PER CT RADIOLOGY DEPT, THE CT GUIDED ABSCESS DRAINAGE ORDERED BY DR FONTANA WILL NOT BE CARRIED OUT AND 'SUPPOSE TO BE CANCELLED BY THE DOCTOR'. PATIENT UNAWARE OF CHANGE IN TREATMENT PLAN. CHARGE NURSE MADE AWARE AND PAGED CORPORATE CONTROLLER WILBERT TO CLARIFY. WAITING CALL BACK.
[2019-06-05 18:12] VITALS: BP 141/59
--- NOTE | 2019-06-05 18:22 | NUR ---
PER IZZY LOAN SPECIALIST, CLARIFIED PLAN. PATIENT MAY BE DISCHARGE TOMORROW. PATIENT AND SON AT BEDSIDE MADE AWARE. NO SIGN OF ACUTE DISTRESS, DENIES DISCOMFORT AT THIS TIME. WILL CONT TO MONITOR AND ENDORSE TO NOC NURSE.
--- NOTE | 2019-06-05 19:45 | NUR ---
PT RECIEVED FROM DAY NURSE. PT SITTING AT BEDSIDE COMFORTABLY. SO COMPLAINTS OF PAIN AT THIS TIME. A/O X4, CALM AND COOPERATIVE. TELE 24, SR. DENIES CHEST PAIN, N/V, DIZZINESS, OR PALPATATIONS. NON PITTING EDEMA BLE. BREATHING EVEN AND UNLABORED. DENIES SOB ON 2L NC. ABD SOFT AND ROUND. INCISION TO ABD CDI, AMERICA INTACT,CRAIG. RFA 22G CDI. BED AT LOWEST POSITION, CALL LIGHT WITHIN REACH. WILL CONTINUE TO MONITOR.
[2019-06-05 21:24] VITALS: BP 107/55
--- NOTE | 2019-06-06 01:27 | NUR ---
PT RESTING IN BED WITH EYES CLOSED. NO S/S OF DISTRESS NOTED AT THIS TIME. BREATHING EVEN AND UNLABORED. BED AT LOWEST POSITION, CALL LIGHT WITHIN REACH. WILL CONTINUE TO MONITOR.
--- NOTE | 2019-06-06 03:45 | NUR ---
PT CARE ENDORSED TO ONCOMING NURSE TOSHA.
--- NOTE | 2019-06-06 03:46 | NUR ---
RESUMING CARE OF PT AT THIS TIME. PT REMAINS IN BED AT THIS TIME RESTING. NO SIGNS OF DISTRESS. WILL CONTINUE TO MONITOR.
[2019-06-06 04:52] VITALS: BP 140/56
[2019-06-06 06:36] LABS: BASOPHIL % 0.3 % (0-2); PLATELET COUNT 241 x10^3mcL (130-400)
[2019-06-06 06:44] LABS: CALCIUM 8.9 mg/dL (8.5-10.1); CARBON DIOXIDE 33.5 mmol/L (21-32); CHLORIDE SERUM 98 mmol/L (98-107); CREATININE SERUM 1.3 mg/dL (0.6-1.0); GLUCOSE SERUM 271 mg/dL (74-106); PHOSPHOROUS 3.1 mg/dL (2.5-4.9); POTASSIUM SERUM 4.6 mmol/L (3.5-5.1); SODIUM SERUM 136 mmol/L (136-145)
--- NOTE | 2019-06-06 07:10 | NUR ---
PT REMAINS IN BED AT THIS TIME. PT IS CALM AND COOPERATIVE WITH NURSING CARE. PT ABLE TO REPOSITION SELF IN BED. NO SIGNS OF PAIN OR DISCOMFORT. NO SIGNS OF DISTRESS. ALL PT NEEDS MET. NO SIGNS OF DISTRESS. WILL ENDORSE TO DAY NURSE.
--- NOTE | 2019-06-06 07:44 | NUR ---
RECEIVED PATIENT FROM TIMMY GARCIA. PATIENT SEATED AT BEDSIDE. NO COMPLAINTS OF PAIN OR ABDOMINAL PAIN. REVIEWED PLAN OF CARE WITH PATIENT FOR TODAY, PATIENT VERBALIZES UNDERSTANDING. WILL CONTINUE TO MONITOR. CALL LIGHT IN REACH.
[2019-06-06 08:24] VITALS: BP 140/56
--- NOTE | 2019-06-06 09:04 | NUR ---
TASH ANAYA IN TO SPEAK WITH PATIENT. STATES WE WILL WAIT FOR FURTHER RESULTS OF CT SCAN. PATIENT AWARE. NO COMPLAINTS AT THIS TIME. CALL LIGHT IN REACH.
[2019-06-06 09:50] VITALS: BP 1131/62; BP 165/80
--- NOTE | 2019-06-06 09:57 | NUR ---
SPOKE WITH PATIENT ANJELICA REYES VIA TELEPHONE. STATES HE IS UPSET THAT PATIENT HAS NOT BEEN DISCHARGED TODAY. ANJELICA REYES NOW IN PATIENT ROOM REQUESTING TO SPEAK WITH CHARGE NURSE. CHARGE NURSE ARIELA CURRENTLY IN BED HUDDLE, NOTIFIED PATIENT AND SON. WILL SPEAK WITH SON AGAIN WHEN CHARGE ARIELA AVAILABLE. CALL LIGHT IN REACH AT THIS TIME, NO OTHER COMPLAINTS.
--- NOTE | 2019-06-06 10:44 | NUR ---
SPOKE WITH PATIENT AND PATIENT SON. TASH ANAYA SPOKE WITH BOTH PARTIES. PATIENT SON STILL UPSET THAT PATIENT IS NOT BEING DISCHARGED. EXPLAINED AT LENGTH PROCESS OF DISCHARGE AND NEEDED CLEARANCE FROM SURGEON. PATIENT SON NOW WANTS TO SIGN OUT AMA. RISKS AND BENEFITS EXPLAINED TO PATIENT, SON STATES HE UNDERSTANDS. IV REMOVED, TELEMETRY RETURNED. PATIENT ESCORTED WITH SON DOWN TO LOBBY.
--- NOTE | 2019-06-06 11:02 | NUR ---
ANDRES SIGNED. TELEMETRY RETURNED TO [facility]. IV CATHTER REMOVED AND INTACT. PATIENT AND SON ESCORTED DOWNSTAIRS VIA WHEELCHAIR WITH TIMMY REYES.
== END 2019-06-06 11:10 | disposition left against medical advice (07) | DRG 919 ==
LOC: ED 18:55 → DU 06-03 01:18 → MU 06-03 01:18 → DU 06-05 10:49
PROVIDERS: Emergency Medicine; ADMIT Internal Medicine
DX: K91.872 Postprocedural seroma of a digestive system organ or structure following a digestive system procedure (principal); N17.0 Acute kidney failure with tubular necrosis; K65.1 Peritoneal abscess; I13.0 Hypertensive heart and chronic kidney disease with heart failure and stage 1 through stage 4 chronic kidney disease, or unspecified chronic kidney disease; J96.10 Chronic respiratory failure, unspecified whether with hypoxia or hypercapnia; N39.0 Urinary tract infection, site not specified; E86.0 Dehydration; R31.9 Hematuria, unspecified; J44.9 Chronic obstructive pulmonary disease, unspecified; G47.30 Sleep apnea, unspecified; I50.9 Heart failure, unspecified; I48.91 Unspecified atrial fibrillation; K59.00 Constipation, unspecified; N18.9 Chronic kidney disease, unspecified; E11.22 Type 2 diabetes mellitus with diabetic chronic kidney disease; E11.65 Type 2 diabetes mellitus with hyperglycemia; E87.6 Hypokalemia; E88.09 Other disorders of plasma-protein metabolism, not elsewhere classified; Z88.0 Allergy status to penicillin; Z88.7 Allergy status to serum and vaccine; Y83.9 Surgical procedure, unspecified as the cause of abnormal reaction of the patient, or of later complication, without mention of misadventure at the time of the procedure; Y92.009 Unspecified place in unspecified non-institutional (private) residence as the place of occurrence of the external cause
CPT/HCPCS: 82962; 94150; G0378; J1885; J7030; J7620; Q0092